=== PATIENT | female | born 1995 | race Caucasian/White ===

== ENCOUNTER 2016-12-14 03:18 | Emergency (ER) | payer BC ==
[2016-12-14 03:27] VITALS: BP 141/86
[2016-12-14] MEDS ORDERED: diphenhydrAMINE 50 MG/ML SDV IVPUSH ONE (03:39)
[2016-12-14] MEDS ORDERED: LORazepam 2 MG/ML MDV IVPUSH ONE (03:52)
[2016-12-14] MEDS ORDERED: LORazepam 2 MG/ML MDV ONE (03:54)
[2016-12-14] MEDS ORDERED: Ketorolac 30 MG/ML SDV IVPUSH ONE (05:06)
[2016-12-14] MEDS ORDERED: Acetaminophen 500 MG Tab PO ONE (05:07)
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
== END 2016-12-14 05:34 ==
LOC: JP.ED 03:18
DX: S00.03XA Contusion of scalp, initial encounter (principal); F17.210 Nicotine dependence, cigarettes, uncomplicated; F90.9 Attention-deficit hyperactivity disorder, unspecified type; Z87.820 Personal history of traumatic brain injury; Z79.899 Other long term (current) drug therapy; Z87.440 Personal history of urinary (tract) infections; Y04.0XXA Assault by unarmed brawl or fight, initial encounter
CPT/HCPCS: 36415; 70450; 80053; 96374; 96375; 99285; A9270; G0480; J1200; J1885; J2060